=== PATIENT | female | born 1990 | race Caucasian/White ===

== ENCOUNTER 2017-09-26 02:56 | Emergency (ER) | payer OTHER ==
[~2017-09-26] VITALS: Ht 157.5 cm; Wt 77.1 kg
[2017-09-26 02:56] VITALS: BP_SYST 144
[2017-09-26 03:07] VITALS: BP_SYST 144
== END 2017-09-26 03:07 ==
LOC: SED 02:56
DX: Z02.89 Encounter for other administrative examinations (principal)